=== PATIENT | male | born 1990 | race American Indian/Alaskan Native ===

== ENCOUNTER 2017-12-27 12:38 | Emergency (ER) | payer MEDICAID ==
[2017-12-27 12:50] VITALS: BP 139/90; PULSE 59; RESP 16; TEMP 97; O2SAT 100
[2017-12-27] MEDS ORDERED: Sodium Chloride 0.9% 1,000 ML IV STA (12:56)
--- NOTE | 2017-12-27 14:27 | ED PDOC ---
HPI: Headache Time Seen by Provider: 12/27/17 12:52 Chief Complaint (Nursing): Headache Chief Complaint (Provider): Headache History Per: Patient History/Exam Limitations: no limitations Onset/Duration Of Symptoms: Days (x2) Current Symptoms Are (Timing): Still Present Additional Complaint(s): 27 year old male presents to the ER complaining of right orbital pain/headache, onset yesterday. 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 Tried taking Excedrin at home without relief. Has neurologist appointment scheduled for next month. Patient reports normally he comes here for high pressure O2, which resolves his headaches quickly. States this is not the worst headache of his life. No associated symptoms. PMD: Dr. Jama Past Medical History Reviewed: Historical Data, Nursing Documentation, Vital Signs Vital Signs: Last Vital Signs Temp 97.0 F L 12/27/17 12:48 Pulse 59 L 12/27/17 12:48 Resp 16 12/27/17 12:48 BP 139/90 12/27/17 12:48 Pulse Ox 100 12/27/17 12:48 - Medical History PMH: Migraine - Family History Family History: States: Unknown Family Hx - Social History Current smoker - smoking cessation education provided: No Alcohol: None Drugs: Denies - Allergies Allergies/Adverse Reactions: Allergies Allergy/AdvReac Type Severity Reaction Status Date / Time No Known Allergies Allergy Verified 12/27/17 12:47 Review of Systems ROS Statement: Except As Marked, All Systems Reviewed And Found Negative Constitutional: Negative for: Fever Eyes: Negative for: Vision Change Gastrointestinal: Negative for: Nausea, Vomiting Musculoskeletal: Negative for: Neck Pain Neurological: Positive for: Headache. Negative for: Weakness, Numbness, Confusion, Dizziness Physical Exam - Reviewed Nursing Documentation Reviewed: Yes Vital Signs Reviewed: Yes - Physical Exam Appears: Positive for: Non-toxic, No Acute Distress Head Exam: Positive for: ATRAUMATIC, NORMAL INSPECTION, NORMOCEPHALIC Skin: Positive for: Normal Color, Warm, Dry Eye Exam: Positive for: Normal appearance, EOMI, PERRL Neck: Positive for: Normal Cardiovascular/Chest: Positive for: Regular Rate, Rhythm Respiratory: Negative for: Respiratory Distress Extremity: Positive for: Normal ROM. Negative for: Deformity Neurologic/Psych: Positive for: Alert, senior technical architect II-XII (intact), Oriented (x3), Gait (steady). Negative for: Motor/Sensory Deficits, Aphasia, Facial Droop - ECG O2 Sat by Pulse Oximetry: 100 (RA) Pulse Ox Interpretation: Normal Medical Decision Making Medical Decision Making: Time: 12:56 Initial Plan: * IV fluids * Toradol 30 mg IV 1420 - Pt reports no pain on re-evaluation. Stable for discharge home. Pt will f /u with his neurologist Scribe Attestation: Documented by Marissa Mathew, acting as a scribe for Keyanna Flanagan PA-C Provider Scribe Attestation: All medical record entries made by the Scribe were at my direction and personally dictated by me. I have reviewed the chart and agree that the record accurately reflects my personal performance of the history, physical exam, medical decision making, and the department course for this patient. I have also personally directed, reviewed, and agree with the discharge instructions and disposition. Disposition - Clinical Impression Clinical Impression: Migraine-cluster headache syndrome - Patient ED Disposition Is Patient to be Admitted: No Counseled Patient/Family Regarding: Diagnosis, Need For Followup - Disposition Disposition: Routine/Home Disposition Time: 14:27 Condition: GOOD Instructions: Cluster Headache (DC) Forms: [employer] (Lao) - POA Present On Arrival: None
== END 2017-12-27 14:40 | disposition home or self-care (01) ==
LOC: H.ER 12:38
DX: G44.009 Cluster headache syndrome, unspecified, not intractable (principal)
CPT/HCPCS: 96360; 99284; J1885; J7040